=== PATIENT | female | born 2000 | race Caucasian/White ===

== ENCOUNTER 2019-12-23 19:25 | Emergency (ER) | payer OTHER ==
[2019-12-23 19:33] VITALS: BP 99/77
--- NOTE | 2019-12-23 19:45 | ER Document Report ---
ED Medical Screen (RME) - General Stated Complaint: VAGINAL BLEEDING,ABDOMINAL PAIN Notes: Patient is a 19-year-old female who is at a suspected gestation of 3 months who presents to the emergency department the chief complaint of vaginal bleeding. Patient reports early in the she had some spotting here and there. She states earlier this evening she was using the restroom and noticed some heavy bleeding into the toilet that was dark in color and clotted. She reports her first was loss of the miscarriage. She is very concerned that we are going to tell her "there is nothing there". She denies any pain or urinary complaints. I have treated and performed a rapid initial assessment of this patient. A comprehensive ED assessment and evaluation of the patient, analysis of test results and completion of medical decision making process will be conducted by additional ED providers. PHYSICAL EXAMINATION: GENERAL: Well-appearing, well-nourished and in no acute distress. A&Ox4. Answers questions appropriately. Physical Exam - Vital signs Vitals: Temp Pulse Resp BP Pulse Ox 98.7 F 93 16 99/77 L 98 12/23/19 19:32 12/23/19 19:32 12/23/19 19:32 12/23/19 19:32 12/23/19 19:32 Course - Vital Signs Vital signs: Temp Pulse Resp BP Pulse Ox 98.7 F 93 16 99/77 L 98 12/23/19 19:32 12/23/19 19:32 12/23/19 19:32 12/23/19 19:32 12/23/19 19:32
[2019-12-23 20:31] LABS: APPEARANCE,URINE CLOUDY; BILIRUBIN,URINE NEGATIVE (NEGATIVE); COLOR,URINE AMBER; GLUCOSE, URINE NEGATIVE (NEGATIVE); KETONES,URINE NEGATIVE (NEGATIVE); PROTEIN,URINE 100 mg/dL (NEGATIVE); URINE SPECIFIC GRAVITY 1.024; UROBILINOGEN,URINE NEGATIVE mg/dL (<2.0)
--- NOTE | 2019-12-23 21:31 | RADIOLOGY REPORT (SQ) ---
EXAM DESCRIPTION: ULTRASOUND PELVIS TRANSABDOMINAL AND TRANSVAGINAL AND DOPPLER EVALUATION OF THE OVARIES CLINICAL HISTORY: History of presenting with bleeding. COMPARISON: None available. TECHNIQUE: A transabdominal and transvaginal pelvic ultrasound was done, followed by Doppler evaluation of the ovaries. FINDINGS: Exam appears technically limited by overlying bowel gas. Uterus measures 5.3 x 2.5 x 2.4 centimeters. The uterus is homogeneous in appearance. No definite intrauterine is identified. The endometrial echo complex measures 12 mm. Cervix measures 2.1 cm. Bilateral ovaries are not definitively identified. IMPRESSION: 1. Technically limited evaluation. 2. No definite intrauterine is visualized. Differential diagnosis includes early intrauterine not yet visualized, spontaneous , or ectopic . Correlation with beta hCG is suggested with further workup as clinically indicated.
[2019-12-23 21:38] LABS: ABSOLUTE BASOPHILS # (AUTO) 0.1 10^3/uL (0.0-0.2); ABSOLUTE EOSINOPHILS # (AUTO) 0.3 10^3/uL (0.0-0.6); ABSOLUTE LYMPHOCYTES (AUTO) 3.1 10^3/uL (0.5-4.7); ABSOLUTE MONOCYTES (AUTO) 0.7 10^3/uL (0.1-1.4); ABSOLUTE NEUT (AUTO) 5.6 10^3/uL (1.7-8.2); BASOPHILS % (AUTO) 0.6 % (0-2); EOSINOPHILS % (AUTO) 3.3 % (0-6); HEMATOCRIT 43.8 % (36.0-47.0); HEMOGLOBIN 15.1 g/dL (12.0-15.5); MEAN CORPUSCULAR HEMOGLOBIN 29.9 pg (27.0-33.4); MEAN CORPUSCULAR HGB CONC 34.4 g/dL (32.0-36.0); MEAN CORPUSCULAR VOLUME 87 fl (80-97); MONOCYTES % (AUTO) 6.8 % (3-13); PLATELET COUNT 282 10^3/uL (150-450); RED BLOOD COUNT 5.04 10^6/uL (3.72-5.28); RED CELL DISTRIBUTION WIDTH 13.6 % (11.5-14.0); SEGMENTED NEUTROPHILS % (AUTO) 57.3 % (42-78); TOTAL CELLS COUNTED % (AUTO) 100 %; WHITE BLOOD COUNT 9.8 10^3/uL (4.0-10.5)
[2019-12-23 21:48] LABS: ALBUMIN 4.8 g/dL (3.5-5.0); ALKALINE PHOSPHATASE 79 U/L (38-126); ANION GAP 10 (5-19); ASPARTATE AMINO TRANSFERASE 23 U/L (14-36); BILIRUBIN,TOTAL 0.7 mg/dL (0.2-1.3); BLOOD UREA NITROGEN 16 mg/dL (7-20); CALCIUM 9.6 mg/dL (8.4-10.2); CARBON DIOXIDE 23 mmol/L (22-30); CHLORIDE 106 mmol/L (98-107); GLUCOSE 94 mg/dL (75-110); POTASSIUM 4.1 mmol/L (3.6-5.0)
--- NOTE | 2019-12-23 22:20 | ER Document Report ---
ED GI/ - General Chief Complaint: OB Problem (<20wks) Stated Complaint: VAGINAL BLEEDING,ABDOMINAL PAIN Time Seen by Provider: 12/23/19 21:25 Mode of Arrival: Ambulatory Information source: Patient Notes: 19-year-old woman presents to the emergency department states that she started having cramping and bleeding today and passed clots and tissue at home. She states that her last normal menstrual period was in June. Patient has no active bleeding at this time. She denies cramping at this time. She has been drinking. - Related Data Allergies/Adverse Reactions: cephalexin [From Keflex] Allergy (Verified 12/23/19 19:57) metronidazole [From Flagyl] Allergy (Verified 12/23/19 19:57) Penicillins Allergy (Verified 12/23/19 19:57) Sulfa (Sulfonamide Antibiotics) Allergy (Verified 12/23/19 19:57) Home Medications: vitamins Past Medical History - Social History Smoking Status: Never Smoker Family History: Reviewed & Not Pertinent Patient has suicidal ideation: No Patient has homicidal ideation: No Review of Systems - Review of Systems Notes: Constitutional: Negative for fever. HENT: Negative for sore throat. Eyes: Negative for visual changes. Cardiovascular: Negative for chest pain. Respiratory: Negative for shortness of breath. Gastrointestinal: Negative for abdominal pain, vomiting or diarrhea. Genitourinary: + Vaginal bleeding, + pelvic cramping Musculoskeletal: Negative for back pain. Skin: Negative for rash. Neurological: Negative for headaches, weakness or numbness. 10 point ROS negative except as marked above and in HPI. Physical Exam - Vital signs Vitals: Temp Pulse Resp BP Pulse Ox 98.7 F 93 16 99/77 L 98 12/23/19 19:32 12/23/19 19:32 12/23/19 19:32 12/23/19 19:32 12/23/19 19:32 - Notes Notes: PHYSICAL EXAMINATION: Physical Exam: General: Well-nourished opqp-[id number]-shmi-old female in no acute distress HEENT: NC/AT, pupils equal round and reactive to light, MM moist,nares clear, oropharynx clear, airway patent Neck: supple, no adenopathy, no masses. Good range of motion Lungs: clear, no wheezing, no rales no rhonchi CVS: Regular rate and rhythm no murmur gallop or rub Abdomen: Soft, active, nontender, no masses, no hepatosplenomegaly Ext: No edema, clubbing or cyanosis. Neuro: Alert and responsive, moving all 4 extremities on command, cranial nerves intact, no focal findings Skin: Intact no open lesions, no rash PSYCH: Normal mood, normal affect. Course - Re-evaluation Re-evalutation: 12/23/19 23:37 Patient was confronted with a negative quant and a negative ultrasound she admits that she has been drinking and denies passage of tissue tonight. I am sending the patient home with a diagnosis of spontaneous AB/complete - Vital Signs Vital signs: Temp Pulse Resp BP Pulse Ox 98.7 F 93 16 99/77 L 98 12/23/19 19:32 12/23/19 19:32 12/23/19 19:32 12/23/19 19:32 12/23/19 19:32 - Laboratory Result Diagrams: 12/23/19 21:06 12/23/19 21:06 Laboratory results interpreted by me: 12/23/19 18:55 Urine Protein 100 H Urine Blood LARGE H Leukocyte Esterase Rfl TRACE H - Diagnostic Test Radiology reviewed: Image reviewed, Reports reviewed - OB ultrasound: Limited, no definite IUP.? Early ? Spontaneous AB,? Ectopic . Possibly no . Discharge - Discharge Clinical Impression: Vaginal bleeding Condition: Good Disposition: HOME, SELF-CARE Instructions: Vaginal Bleeding ([facility]) Additional Instructions: You were seen in the emergency department for vaginal bleeding, your quantitative hCG was negative, ultrasound was negative, you are not . Your blood type is O-, you do not need RhoGam. You may be discharged home and follow-up with your doctor as needed. If you have further difficulties or concerns you may return to the emergency department. HOME CARE INSTRUCTIONS & INFORMATION: Thank you for choosing us for your medical needs. We hope you're satisfied with the care you received. After you leave, you must properly care for your problem and, at the same time, observe its progress. Any condition can change. Some illnesses can change rapidly over hours or days. If your condition worsens, return to the Emergency Department or see your physician promptly. ABOUT YOUR X-RAYS AND EKG'S: If you had an EKG or X-rays taken, they have been read by the Emergency Physician. The X-rays and EKG's will also be read by a Radiologist or Local [employer] within 24 hours. If discrepancies are noted, you will be notified by telephone. Please be certain the ED has a correct telephone number & address where you can be reached. Also, realize that some fractures or abnormalities do not show up on initial X-rays. If your symptoms continue, see your physician. ABOUT YOUR LABORATORY TEST: If you had laboratory tests, the results have been reviewed by the Emergency Physician. Some test results (for example cultures) may not be available for several days. You will be contacted if any test result shows you need additional treatment. Please be certain the ED has a correct telephone number and address where you can be reached. ABOUT YOUR MEDICATIONS: You will receive instructions on how to take your medicine on the prescription label you receive. Additional information may be provided by the Pharmacy. If you have questions afterwards, call the ED for clarification or further instructions. Some prescribed medications may cause drowsiness. Do not perform tasks such as driving a car or operating machinery without consulting your Pharmacist. If you feel you need a refill of pain medication, your condition will need re-evaluation. Please do not call for a refill of any medication. ABOUT YOUR SIGNATURE: Signature of this document acknowledges to followin. Understanding that you received emergency treatment and that you may be released before al medical problems are known or treated. Please be certain the ED has a correct phone number & address where you can be reached. 2. Acknowledgement that you will arrange for follow-up care as recommended. 3. Authorization for the Emergency Physician to provide information to your follow-up Physician in order to maximize your care. AT ANY TIME, IF YOUR SYMPTOMS CHANGE SIGNIFICANTLY OR WORSEN OR YOU DEVELOP NEW SYMPTOMS, RETURN TO THE EMERGENCY DEPARTMENT IMMEDIATELY FOR RE-EVALUATION. OUR GOAL IS TO PROVIDE EXCELLENT MEDICAL CARE! WE HOPE THAT WE HAVE MET YOUR EXPECTATIONS DURING YOUR EMERGENCY DEPARTMENT VISIT AND THAT YOU FEEL YOU HAVE RECEIVED EXCELLENT CARE!
== END 2019-12-23 23:57 | disposition home or self-care (01) ==
LOC: ER 19:25
DX: O03.9 Complete or unspecified spontaneous abortion without complication (principal); R10.2 Pelvic and perineal pain; Z79.899 Other long term (current) drug therapy; Z88.1 Allergy status to other antibiotic agents; Z88.0 Allergy status to penicillin; Z88.2 Allergy status to sulfonamides
CPT/HCPCS: 36415; 76817; 80053; 81001; 84702; 85025; 86850; 86900; 86901; 87086; 87088; 87186; 99284

== ENCOUNTER 2020-09-14 15:34 | Emergency (ER) | payer OTHER ==
[2020-09-14 15:43] VITALS: BP 117/85
== END 2020-09-14 17:22 | disposition left against medical advice (07) ==
LOC: ER 15:34
DX: Z53.21 Procedure and treatment not carried out due to patient leaving prior to being seen by health care provider (principal)